=== PATIENT | male | born 1980 | race Caucasian/White ===

== ENCOUNTER 2020-11-27 06:00 | Inpatient (IN) | payer MEDICAID, SELFPAY ==
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
--- NOTE | 2020-11-21 11:07 | EKG12_ITS ---
Test Reason : PRE OP Blood Pressure : / mmHG Vent. Rate : 072 BPM Atrial Rate : 072 BPM P-R Int : 148 ms QRS Dur : 090 ms QT Int : 376 ms P-R-T Axes : 029 020 027 degrees QTc Int : 411 ms Normal sinus rhythm Normal ECG Confirmed by VALERIE ALVARADO, SANTOSH ([id number]), field map editor LUCAS DIEZ ([id number]) on 11/21/2020 1:15:42 PM Referred By: GALILEA Confirmed By:SANTOSH PADILLA MD
[2020-11-21 11:38] LABS: Absolute Lymphocyte Count 1.69 X10^3/uL (0.83-4.51); Absolute Neutrophil Count 3.3 X10^3/uL (2.0-7.7); Basophil# 0.03 X10^3/uL; Basophil% 0.5 % (0-1); Eosinophil# 0.08 X10^3/uL; Eosinophils% 1.4 % (0-5); Hemoglobin 15.4 g/dL (13.0-16.5); Lymphocyte # 1.69 X10^3/ul (0.83-4.51); Lymphocyte % 30.5 % (19-41); Mean Corp Hgb Conc 34.2 g/dL (32-36); Mean Corpuscular Hgb 29.8 pg (27.0-32.0); Mean Corpuscular Volume 87.2 fL (80-94); Mean Platelet Vol. 9.2 fl (6.2-12.0); Monocyte# 0.44 X10^3/uL; Monocyte% 7.9 % (0-10); NRBC Flagged by Analyzer 0 % (0-5); Neutrophil # 3.28 X10^3/uL (2.7-7.7); Neutrophil % 59.3 % (47-70); Platelet Count 240 K/mm3 (150-450); RBC Distribution Width SD 41.6 fl (35.1-43.9); Red Blood Count 5.16 M/mm3 (4.6-6.2); White Blood Count 5.5 K/mm3 (4.4-11.0)
[2020-11-21 11:55] LABS: Anion Gap 8 (5-15); BUN 21 mg/dL (7-18); BUN/Creat Ratio 23.3 RATIO (10-20); Calcium,Total 9.1 mg/dL (8.5-10.1); Chloride 105 mmol/L (98-107); EST Glomerular Filtration Rate 100 mL/min (>60); Est Glom Filt Rate - Afr Amer 121 mL/min (>60); Glucose 98 mg/dL (74-106); Sodium Level 138 mmol/L (136-145)
[2020-11-21 12:01] LABS: Magnesium 2.3 mg/dL (1.6-2.6)
[2020-11-21 12:55] LABS: HIV - WCH Non-Reactive (Nonreactive)
[2020-11-22 04:07] LABS: HEPATITIS B SURFACE AG Negative (Negative); Hepatitis A AB, Total Negative (Negative); Hepatitis A IgM Antibody Negative (Negative); Hepatitis B Core AB IgM Negative (Negative); Hepatitis B Core Ab Total Negative (Negative); Hepatitis C Ab <0.1 s/co ratio (0.0-0.9)
[2020-11-22 16:26] LABS: Hep B Surface Antibodies Non Reactive (.)
[2020-11-27] VITALS (11 sets, daily range): BP systolic 99–148; BP diastolic 55–89; PULSE 74–99; RESP 16–18; TEMP 36.2–37.1; O2SAT 92–99; BMI 38.7; BMI 40.1
[2020-11-27] MEDS: Acetaminophen 500 MG Tablet 1000 MG PO (06:54)
[2020-11-27] MEDS: Lactated Ringers 1,000 ML 100 ML IV ×5 (06:55→17:18)
--- NOTE | 2020-11-27 07:30 | RAD_ITS ---
INDICATION: 360 FUSION L5-S1 WITH LAMINECTOMY, RIGHT EXAMINATION/TECHNIQUE: X-RAY - XR Spine Lumbar 1 View COMPARISON: None. FINDINGS: A single lateral image in OR was obtained centered at the L5-S1 intervertebral disc space showing a metallic localization probe projecting over the anterior aspect of the L5-S1 intervertebral disc space. RAD/Spine 1 View Any Level IMPRESSION: A localization probe is noted projected over the anterior aspect of the L5-S1 intervertebral disc space. Electronically Signed: Lamont Luu DO at 10:13 EDT Tel , Service support ,
--- NOTE | 2020-11-27 07:30 | DISC_PTH ---
PATIENT: GINGER DONOVAN LOC: MS3 U#:[id number] AGE/SX: 39/M ROOM: ID315 RE11/27/[address]: Dr. Ricky Carvalho DO : 1980 BED: 1 DIS: 11/30/2020 SPEC #: [id number] RECD: 11/27/20 13:30 STATUS: SRIDHAR BROOKE #: [id number] JAMES: 11/27/20 07:[address]: Ricky Carvalho DEPT: SURGICAL PATHOLOGY RECD BY: Ariane Adams ENTERED: 11/27/20 13:43 SP TYPE: DISC OTHR DR: No Primary Care Phys Tissues: Intervertebral disc, NOS Procedures: Surgery Specimen Level III HEADER OPERATION: ERAS, 360 lumbar fusion L5-S1 with laminectomy PRE-OP DIAGNOSIS: Degenerative disc disease lumbosacral; herniated nucleus pulposus lumbar TISSUE SUBMITTED: Disc L5-S1 MICROSCOPIC DIAGNOSIS Disc L5-S1: Fragments of fibrocartilaginous tissue with reactive and degenerative changes and bone. CHEPE:joy 11/28/2020 MICROSCOPIC DESCRIPTION Slides are reviewed. GROSS DESCRIPTION Received in fixative is one container labeled with the patient's name and designated disc L5-S1. The specimen consists of multiple irregular fragments of roque, indurated tissue that in aggregate measure 4 x 3 x 1 cm. Phlebotomist Supervisor/Instructor tissue is submitted in two cassettes. / CHEPE:joy 11/27/20 TC:5 CPT: 60582
[2020-11-27] MEDS: Cefazolin 2 GM in 0.9% Normal Saline 100 ML IV (08:15)
[2020-11-27 09:15] LABS: Bedside Glucose 122 mg/dL (70-110)
--- NOTE | 2020-11-27 09:28 | RAD_ITS ---
Previous mobile lateral lumbar spine x-rays obtained on 11/27/2020 at 9:14 AM INDICATION: 360 FUSION L5-S1 WITH LAMINECTOMY EXAMINATION/TECHNIQUE: X-RAY - XR Spine Lumbar 1 View COMPARISON: None. FINDINGS: On this single lateral operative multiple oval our film there has been no fusion of the all 5 S1 intervertebral disc with an ACDF plate in place spanning the L5 and S1 segments anteriorly. The lower lumbar spine is maintained in good position and alignment. RAD/Spine 1 View Any Level IMPRESSION: Status post ORIF with fusion of the L5-S1 intervertebral disc space, with the lumbar spine maintained good position and alignment. Electronically Signed: Lamont Luu DO at 13:11 EDT Tel , Service support ,
--- NOTE | 2020-11-27 10:53 | PCM.OPRPT ---
Problems Associated Problem List Diagnoses (1) DDD (degenerative disc disease), lumbosacral: (2) HNP (herniated nucleus pulposus), lumbar: Report of Operation Date of Procedure: 11/27/20 Pre-Operative Diagnosis: Degenerative disc disease Post-Operative Diagnosis: Same Surgery/Procedure Performed:: 1. Anterior lumbar interbody fusion L5-S1 with 12 mm cage. Plate placed on top with 225 mm screws in L5 and 225 mm screws into the S1. Type of Anesthesia: General/Regional Description of Procedure: Surgeon Dr. Carvalho co-surgeon: Dr. Wellington Guerrier Operation: Anterior lumbar interbody fusion L5-S1. Operation: Patient brought to the operating room. Underwent general anesthesia. And been given the appropriate antibiotics. Appropriate monitoring lines were all placed. Was prepped and draped in a sterile fashion. We did a left lower quadrant incision and dissected down onto the anterior fascia. This was incised and then extended just past the midline to the right and past the rectus on the left out to the obliques. We then got lateral to the obliques into the retroperitoneal plane down onto the iliopsoas. Omni retractor was placed and retractors in position started blunt dissection. We freed up medial to the left iliac vessels onto the L5-S1 disc space. 2 different iliac venous branches were ligated between clips. The middle sacral vessels were also divided between clips. We then freed up further along this disc space. We confirmed with x-ray that we are in the proper L5-S1 space. He underwent a discectomy then and opened this up with dilators. We then got bone marrow aspirate from the left iliac crest. It was then sized with Elisa and the dilators. We then used a large 12 mm cage. This was filled in with also the bone marrow aspirate. This was then placed with good position. The cage was placed with 2 screws 25 mm in L5. 2 screws then into the sacrum also 25 mm. Film was placed over this is retractors were gently released. And this covered over the cage underneath the vessels. There is good hemostasis noted throughout. We then did a completion x-ray that showed good position of the screws and the cage. We then closed the anterior fascia with a running strata fix. Then with 2-0 Vicryl and 3-0 Vicryl's. Monocryl for the skin and Dermabond was placed. He will then be flipped over and the posterior part were all be done and dictated separately. I was present during the entire component of the anterior. Complications None
--- NOTE | 2020-11-27 10:57 | OP.PCM_ITS ---
Report of Operation Date of Procedure: 11/27/20 Description of Surgical Findings:: Preoperative diagnosis: Degenerative disc disease with instability L5-S1 Postoperative diagnoses: The same Procedures: #1 anterior lumbar interbody fusion L5-S1 CPT code 56100 #2 application of anterior spine plate L5-S1 CPT code 15928/59 not integral to interbody cage #3 insertion of interbody cage L5-S1 CPT code 74304 Cosurgeons: Dr. Carvalho and Dr. Guerrier assistant professor nurse education: Sandy VILLALBA Anesthesia: General endotracheal anesthesia administered by [facility] Estimated blood loss: Less than 100 cc Drains: None Complications: None Procedure: Patient was taken to the OR where he was placed in the supine position on the operating table he was then placed under general endotracheal anesthesia. A Guerra catheter was inserted. Neuro monitoring placed their leads and the patient. The abdomen was then prepped and draped in standard fashion. The anterior abdominal retroperitoneal approach is described in Dr. Guerrier's operative summary. Once Dr. Guerrier had the exposure for L5-S1 he confirmed with x-ray. I then remove the anterior annulus of the L5-S1 disc with a 10 blade. At that he had a severely decreased disc space. I then was able to remove some of the nucleus with a small pituitary rongeurs. I also used small angled curettes and ring curettes to accomplish more of the same. To the posterior po rtion of the decrease space I had to use a 6 mm patito bur. Was able to bur the posterior annulus all the way across repeatedly followed by the instillation of cold saline to prevent thermal injury. I also removed all the cartilage off the endplates with curettes. In this portion we were able to obtain enough room for a large 12 mm high 8 degree interbody cage. In the meantime a Jamshidi need le was placed in the patient's left ASIS and obtained 60 cc of bone marrow aspirate. This was then handed off to the endoscopy technician who spun down the aspirate the stem cells from the other cells concentrated them and gave them back to us. We then filled the inside of the cage with spongy DBM that was then soaked in the patient's own concentrated stem cells. I then tamped this into place and countersunk the cage approximately 3 mm. Used cautery to elevate the anterior longitudinal ligament above and below the space to make room for the plate. Small anterior spurs were easily removed with double-action rongeurs. Ended up using a 25 mm lumbosacral plate. Once centered I held it in place while Dr. Guerrier tamped each of the 4 holes 2 into L5 and 2 into S1. After tapping each 1 at a time he entered with the 25 mm self-tapping screws at all 4 points. He then activated the locking mechanisms at both ends of the plate. Observe this on x-ray and was found to be quite satisfactory the position of the plate the screws and the cage. An amniotic membrane was then placed over the cage to prevent adhesion to the vessels surrounding it. The closure is then described in Dr. Guerrier's operative summary. This is the end of operative summary on Jimbo Diego. This is Dr. Carvalho dictating.
--- NOTE | 2020-11-27 12:17 | RAD_ITS ---
STUDY: X-RAY - LUMBAR SPINE REASON FOR EXAM: Male, 39 years old. 360 FUSION L5-S1 with laminectomy TECHNIQUE: 1 view(s) of the lumbar spine were obtained. COMPARISON: Earlier the same day FINDINGS: L5-S1 spinal fixation. L5-S1 intervertebral disc spacer. L5 laminectomy. No unexpected intraoperative findings. Surgical soft tissues with localization device. RAD/Spine 1 View Any Level IMPRESSION: L5-S1 laminectomy with spinal fixation and disc spacer Intraoperative image Please see surgeon''s note Electronically Signed: Kota Calle DO at 12:35 EDT Tel , Service support ,
--- NOTE | 2020-11-27 13:49 | PCM.OPRPT ---
Report of Operation Date of Procedure: 11/27/20 Description of Surgical Findings:: Preoperative diagnosis: degenerative disc disease L5-S1 with instability Postoperative diagnoses: The same Procedures: #1 bilateral lateral fusion L5-S1 CPT code 62149 #2 lumbar laminectomy discectomy L5-S1 CPT code 23321 #3 nonsegmental internal fixation L5-S1 CPT code 46851 Surgeon: Dr. Carvalho First assistants: Gelacio Lemus and Sandy VILLALBA Anesthesia: General endotracheal anesthesia administered by [facility] EBL: 100 cc Drains: Medium Hemovac Complications: None Procedure: Once the anterior surgery was done in the abdomen closed the patient was then positioned in the prone position on the Laz frame. After appropriate positioning with care to protect his bony prominences his genitalia the brachial plexus and ulnar nerves bilaterally the back was prepped and draped in standard fashion. I then made a longitudinal incision site centered over L5-S1 subcutaneous tissues were incised length of skin incision I opened the lumbar fascia using cautery to the right of the spinous processes and elevated the paravertebral muscles off the lamina of of L5 and the lamina of S1. An intraoperative x-ray was taken to assure that we were indeed at the proper level which we were. Brea retractor was then put in place and then elevated the ligamentum flavum off the underside of the lamina of L5 on the right side. I then performed a laminectomy with Kerrison rongeurs and then remove the ligamentum flavum in retrograde fashion with the 45 degree Kerrison rongeurs. In this fashion I was able to retract the S1 nerve root and dura medialward exposing the herniated disc that the disc was had been there for quite a while was calcified but I was able to cut through it and remove the portion that was pressing on the nerve. In addition opening the lateral recess also decompress the nerve. Thorough irrigation was carried out repeatedly. I then exposed the lateral recess on the right side. We then opened the opposite side and did the same thing again elevating peritoneal muscles off the lamina of S1 and the lamina of L5 when out over the facets and expose the transverse process of L5 and the ala of S1. The area was then burred and the biologic bone called Sparc was used to fill the gutters on both sides the internal fixation device was then applied was locked into place over both interspaces and the locking mechanisms were activated. This was observed in the AP and lateral projection was found to be quite satisfactory. A medium Hemovac drain was put in place we then closed the lumbar fascia using [id number] suture with #1 Vicryl followed by closure of subcutaneous tissues with 2-0 Vicryl in interrupted fashion and skin was approximated using skin clips sterile dressings were then applied. The patient was then recovered in the OR moved to his hospital bed and taken to recovery in satisfactory condition. This is the end of operative summary on Jimbo Diego. This is Dr. Carvalho dictating.
[2020-11-27] MEDS: Morphine 4 MG/ML Syringe IV ×3 (17:18→21:32)
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
[2020-11-27] MEDS: diazePAM 5 MG Tablet PO (18:26)
[2020-11-27] MEDS: oxyCODONE 5 MG Tablet PO (18:26)
[2020-11-27] MEDS: Cefazolin 1 GM/50 ML BAG IV (18:37)
[2020-11-27] MEDS: Famotidine 20 MG Tablet PO (21:32)
[2020-11-27] MEDS: Senna/Docusate Sodium 1 Tablet 2 TABLET PO (21:32)
[2020-11-27] MEDS: Zolpidem Tartrate 5 MG Tablet PO (21:32)
[2020-11-28] VITALS (8 sets, daily range): BP systolic 123–137; BP diastolic 73–91; PULSE 72–95; RESP 14–16; TEMP 36.8–37.2; O2SAT 94–100
[2020-11-28] MEDS: Morphine 4 MG/ML Syringe IV ×5 (00:11→20:38)
[2020-11-28] MEDS: Lactated Ringers 1,000 ML 100 ML IV ×3 (00:16→18:43)
[2020-11-28] MEDS: Cefazolin 1 GM/50 ML BAG IV (03:55)
[2020-11-28] MEDS: oxyCODONE 5 MG Tablet PO (05:13)
[2020-11-28] MEDS: 0.9% Saline Lock 10 ML Syringe IV ×2 (07:42→16:35)
[2020-11-28] MEDS: Famotidine 20 MG Tablet PO ×2 (07:42→22:20)
[2020-11-28] MEDS: Senna/Docusate Sodium 1 Tablet 2 TABLET PO ×2 (07:42→22:20)
--- NOTE | 2020-11-28 09:06 | PCM.PN.HOSP ---
Subjective Subjective Still with back pain. Current pain medication has no relieved it. Objective Data Objective Data Vital Signs: Vital Signs Temp Pulse Resp BP Pulse Ox 36.8 C 72 14 126/84 H 98 11/28/20 07:40 11/28/20 07:40 11/28/20 07:40 11/28/20 07:40 11/28/20 08:00 Oxygen Flow Rate (L/min) 6 Oxygen Delivery Method Room Air Weight: 130.436 kg Body Mass Index (BMI) 40.1 Intake & Output: Intake and Output for Last 24 Hours 11/26/20 11/27/20 11/28/20 23:59 23:59 23:59 Intake Total 3613.67 / 3613.67 1111.67 / 1111.67 Output Total 916 / 1716 1420 / 1420 Balance 2697.67 / 1897.67 -308.33 / -308.33 Lab / Micro Data Result Diagrams: 11/21/20 11:19 11/21/20 11:19 Labs: Laboratory Results - last 24 hr 11/27/20 06:29: POC Glucose 122 H Micro: Microbiology 11/26/20 14:43 Interface Orders SARS-CoV-2 Antigen (Rapid) - Final 11/21/20 11:19 Swab (Method) Nasal Screen MRSA/MSSA - Final Radiography Diagnostic Testing: Radiology Impression Spine X-Ray 11/27/20 07:30 IMPRESSION: A localization probe is noted projected over the anterior aspect of the L5-S1 intervertebral disc space. Electronically Signed: Lamont Luu DO at 10:13 EDT Tel , Service support , Spine X-Ray 11/27/20 09:28 IMPRESSION: Status post ORIF with fusion of the L5-S1 intervertebral disc space, with the lumbar spine maintained good position and alignment. Electronically Signed: Lamont Luu DO at 13:11 EDT Tel , Service support , Spine X-Ray 11/27/20 12:17 IMPRESSION: L5-S1 laminectomy with spinal fixation and disc spacer Intraoperative image Please see surgeon''s note Electronically Signed: Kota Calle DO at 12:35 EDT Tel , Service support , Physical Exam Const alert HEENT Head and Scalp: normocephalic Resp normal respiratory effort, no retractions, no use of accessory muscles and clear to auscultation bilaterally Cardio regular rate, regular rhythm, S1 normal heart sound and S2 normal heart sound GI normal to inspection, nondistended, normoactive bowel sounds, soft to palpation, non-tender and non-distended Extremity normal to inspection Neuro Sensorium / Orientation: awake and alert Assessment & Plan Assessment/Plan (1) DDD (degenerative disc disease), lumbosacral: (2) IBS (irritable bowel syndrome): QUALIFIERS: Irritable bowel syndrome type: unspecified Qualified Code(s): K58.9 - Irritable bowel syndrome without diarrhea PLAN: 1. Status post bilateral lateral fusion of L5-S1, lumbar laminectomy and discectomy of L5-S1. Postoperatively, patient is feeling well. Management per spine surgery. PT eval He has been taking oxycodone 5mg w/o relief. Advised using oral then using IV for breakthrough. Will increase oral to 5-10mg and utilize IV for breakthrough. 2. IBS Stable Supportive management at this time 3. VTE prophylaxis SCDs Charges/Coding Visit Charges Inpatient E&M: 61832 Subs Hosp L2
[2020-11-28] MEDS: oxyCODONE 5 MG Tablet 10 MG PO ×4 (10:08→22:51)
--- NOTE | 2020-11-28 12:51 | CASEMGMT ---
RN CM Assessment Introduced role of RN CM to patient. Patient is alert, oriented and able to participate in RN CM Assessment. Care providers, pharmacy, and demographics verified. Admit Dx: 360 Lumbar Infusion w/Laminectomy Re-Admit: No Barriers/Issues: None PCP: None- PCP list provided Specialists: Pain Management in [place]. Ricky Carvalho-Ortho Surgeon Preferred Pharmacy: [facility] Insurance: [facility] CP Rx Benefit: Yes LNOK: Arlyn Caicedo- Mother LW/HPOA: None, AD packet provided. Living Arrangements: Lives alone in a H, 3 steps to enter. ADL?s: Independent with ambulation and ADLs Transportation: Patient drives. Father Chai will transport upon DC. DME: None HHC: None SNF: None Goal: Home and Outpatient PT, PT-recommended FWW but patient would like a cane. Denies any other concerns, issues, or needs with DC. Aware RNCM will remain available should any emerging needs arise. DC PLAN: Home with outpatient PT, FWW and Cane prescription. BRITT Rutledge
--- NOTE | 2020-11-28 13:19 | PCM.PN.ORT ---
Objective Data Objective Data Vital Signs: Vital Signs Temp Pulse Resp BP Pulse Ox 98.8 F 72 14 124/81 H 97 11/28/20 12:00 11/28/20 12:00 11/28/20 12:00 11/28/20 12:00 11/28/20 12:00 Oxygen Flow Rate (L/min) 6 Oxygen Delivery Method Room Air Weight: 287 lb 9 oz Body Mass Index (BMI) 40.1 Intake & Output: Intake and Output for Last 24 Hours 11/26/20 11/27/20 11/28/20 23:59 23:59 23:59 Intake Total 3613.67 / 3613.67 1691.67 / 1691.67 Output Total 916 / 1716 1420 / 1420 Balance 2697.67 / 1897.67 271.67 / 271.67 Lab / Micro Data Result Diagrams: 11/21/20 11:19 11/21/20 11:19 Micro: Microbiology 11/26/20 14:43 Interface Orders SARS-CoV-2 Antigen (Rapid) - Final 11/21/20 11:19 Swab (Method) Nasal Screen MRSA/MSSA - Final Procedure Criteria Elective Risks - COVID COVID Risk Discussion: Postop day #1. Jimbo is seen on rounds today. His right leg pain is gone. He has been up on his walker and walking the hallways. He states that his abdomen hurts a lot more than his back does. There is still no bowel sounds and he is a bit bloated suggesting that he has as expected an ileus. However we will change his diet to clear liquids today even though I thought I ordered it the system is unclear as to what kind of diet anybody seems to get. Nonetheless I will order it now. Overall he is doing very well his dressing is dry we will remove the drain tomorrow and change the dressing. Progress is satisfactory.
--- NOTE | 2020-11-28 13:54 | CASEMGMT ---
Pt asked CM for resources regarding financial resources as pt will not be able to work for a couple of months. SW met w/pt in room, pt's parents are present. SW gave pt information for Social Security to apply for disability, other financial resources in [facility], and information on 211. SW remains available for any additional resources. SUKHI Brothers
[2020-11-28] MEDS: diazePAM 5 MG Tablet PO (22:51)
[2020-11-29 02:07] VITALS: BP 132/73; PULSE 97; RESP 18; TEMP 37.1; O2SAT 96
[2020-11-29] MEDS: Morphine 4 MG/ML Syringe IV ×5 (02:12→20:01)
[2020-11-29] MEDS: oxyCODONE 5 MG Tablet 10 MG PO ×5 (04:34→22:36)
[2020-11-29 07:22] VITALS: O2SAT 92
[2020-11-29 08:00] VITALS: BP 121/80; PULSE 97; RESP 14; TEMP 37; O2SAT 94
[2020-11-29] MEDS: Famotidine 20 MG Tablet PO ×2 (09:48→22:35)
[2020-11-29] MEDS: Senna/Docusate Sodium 1 Tablet 2 TABLET PO ×2 (09:48→22:35)
[2020-11-29] MEDS: 0.9% Saline Lock 10 ML Syringe IV ×3 (11:16→20:02)
[2020-11-29 13:49] VITALS: BP 135/78; PULSE 87; RESP 18; TEMP 37.6; O2SAT 98
--- NOTE | 2020-11-29 13:50 | PCM.PN.HOSP ---
Subjective Subjective pain better controlled. improved sensation in LE. Objective Data Objective Data Vital Signs: Vital Signs Temp Pulse Resp BP Pulse Ox 37.0 C 97 14 121/80 H 94 11/29/20 08:00 11/29/20 08:00 11/29/20 08:00 11/29/20 08:00 11/29/20 08:00 Oxygen Flow Rate (L/min) 6 Oxygen Delivery Method Room Air Weight: 130.436 kg Body Mass Index (BMI) 40.1 Intake & Output: Intake and Output for Last 24 Hours 11/27/20 11/28/20 11/29/20 23:59 23:59 23:59 Intake Total 3613.67 / 3613.67 2541.67 / 2541.67 1752.33 / 1752.33 Output Total 916 / 1716 2920 / 2920 1999 Balance 2697.67 / 1897.67 -378.33 / -378.33 -247.67 / -247.67 Medical Nutrition Assessment Dietitian: Nutrition Therapy Diagnosis Start: 11/28/20 15:03 Freq: Status: Active Protocol: Document 11/28/20 15:03 RMA (Rec: 11/28/20 15:03 RMA [id number]) Nutrition Malnutrition Evidence of Malnutrition Exists No Intake Problem Increased Nutrient Needs (specify) Etiology (protein) r/t surgical wounds Signs/Symptoms as evidenced by back and abdomen surgical incisions and need for hemovac. Currently on clear liquid diet. Status Active Problem Recommendation Dietitian Recommendations/Changes Recommend regular/general diet when advanced to PO diet. Add ensure clear 240mL at meals if needed. Lab / Micro Data Result Diagrams: 11/21/20 11:19 11/21/20 11:19 Micro: Microbiology 11/26/20 14:43 Interface Orders SARS-CoV-2 Antigen (Rapid) - Final 11/21/20 11:19 Swab (Method) Nasal Screen MRSA/MSSA - Final Physical Exam Const alert Cardio S2 normal heart sound Extremity normal to inspection and no clubbing, cyanosis or edema Skin no rashes or lesions noted Neuro no sensory deficits noted Assessment & Plan Assessment/Plan (1) DDD (degenerative disc disease), lumbosacral: (2) IBS (irritable bowel syndrome): QUALIFIERS: Irritable bowel syndrome type: unspecified Qualified Code(s): K58.9 - Irritable bowel syndrome without diarrhea PLAN: 1. Status post bilateral lateral fusion of L5-S1, lumbar laminectomy and discectomy of L5-S1. Pain better controlled Postoperatively, patient is feeling well. Management per spine surgery. PT eval He has been taking oxycodone 5mg w/o relief. Advised using oral then using IV for breakthrough. Will increase oral to 5-10mg and utilize IV for breakthrough. 2. IBS Stable Supportive management at this time 3. VTE prophylaxis SCDs Charges/Coding Visit Charges Inpatient E&M: 75303 Subs Hosp L1
[2020-11-29] MEDS: Acetaminophen 500 MG Tablet 1000 MG PO ×2 (13:52→22:35)
--- NOTE | 2020-11-29 15:04 | NURSING ---
DR CALERO IN AND CHANGED DRSG TO BACK AND REMOVED DRAIN. PT TOLERATED WELL
--- NOTE | 2020-11-29 15:06 | PCM.PN.ORT ---
Objective Data Objective Data Vital Signs: Vital Signs Temp Pulse Resp BP Pulse Ox 99.6 F H 87 18 135/78 H 98 11/29/20 13:49 11/29/20 13:49 11/29/20 13:49 11/29/20 13:49 11/29/20 13:49 Oxygen Flow Rate (L/min) 6 Oxygen Delivery Method Room Air Weight: 287 lb 8.994 oz Body Mass Index (BMI) 40.1 Intake & Output: Intake and Output for Last 24 Hours 11/27/20 11/28/20 11/29/20 23:59 23:59 23:59 Intake Total 3613.67 / 3613.67 2541.67 / 2541.67 1752.33 / 1752.33 Output Total 916 / 1716 2920 / 2920 1999 Balance 2697.67 / 1897.67 -378.33 / -378.33 -247.67 / -247.67 Medical Nutrition Assessment Dietitian: Nutrition Therapy Diagnosis Start: 11/28/20 15:03 Freq: Status: Active Protocol: Document 11/28/20 15:03 RMA (Rec: 11/28/20 15:03 RMA [id number]) Nutrition Malnutrition Evidence of Malnutrition Exists No Intake Problem Increased Nutrient Needs (specify) Etiology (protein) r/t surgical wounds Signs/Symptoms as evidenced by back and abdomen surgical incisions and need for hemovac. Currently on clear liquid diet. Status Active Problem Recommendation Dietitian Recommendations/Changes Recommend regular/general diet when advanced to PO diet. Add ensure clear 240mL at meals if needed. Lab / Micro Data Result Diagrams: 11/21/20 11:19 11/21/20 11:19 Micro: Microbiology 11/26/20 14:43 Interface Orders SARS-CoV-2 Antigen (Rapid) - Final 11/21/20 11:19 Swab (Method) Nasal Screen MRSA/MSSA - Final Procedure Criteria Elective Risks - COVID COVID Risk Discussion: Postop day number 2. the patient is doing fairly well he now has good bowel sounds and he is has some flatulence that I witnessed myself. Went ahead and change his back dressing the drain was removed the incision is dry and healing well. Neurologically is intact in both lower extremities. Progress is satisfactory on the second postop day. If he continues to have good bowel sounds tomorrow we might let him go to the house.
--- NOTE | 2020-11-29 15:22 | CASEMGMT ---
FILIPPO JOSUE NOTE: Reviewed PT/OT notes. FWW is recommended. FILIPPO JOSUE to room to talk w/pt. Pt states he would be interested in getting both a FWW and a cane. He was made aware cane is not covered by insurance, but they will cover for portion of cost for FWW. Pt was provided with list of providers consistent with the patient's preferred geographic region, medical needs, and insurance network. The pt's denies having a preference of DME company. Made aware [facility] of [facility] and he states [employer]. Pt also made aware, per Dr Carvalho, he does not wish for pt to get OP therapy. He states that Dr Carvalho had just informed of this and told him he wants him to just walk a lot. Pt denies having any discharge concerns/further needs at this time. Script placed on chart for FWW, awaiting Dr Carvalho's signature. Zeferino GARCIA RN CM
[2020-11-29] MEDS: traMADol 50 MG Tablet 100 MG PO (17:14)
[2020-11-29 18:26] VITALS: BP 117/71; PULSE 86; RESP 16; TEMP 37.2; O2SAT 98
[2020-11-29 22:22] VITALS: BP 126/73; PULSE 81; RESP 16; TEMP 37.5; O2SAT 95
[2020-11-30] MEDS: Morphine 4 MG/ML Syringe IV (01:14)
[2020-11-30] MEDS: 0.9% Saline Lock 10 ML Syringe IV (01:15)
[2020-11-30 02:58] VITALS: BP 119/66; PULSE 91; RESP 16; TEMP 37.3; O2SAT 99
[2020-11-30] MEDS: oxyCODONE 5 MG Tablet 10 MG PO ×3 (03:03→12:26)
[2020-11-30] MEDS: Acetaminophen 500 MG Tablet 1000 MG PO ×2 (06:26→15:13)
[2020-11-30] MEDS: Famotidine 20 MG Tablet PO (08:04)
[2020-11-30] MEDS: Senna/Docusate Sodium 1 Tablet 2 TABLET PO (08:04)
[2020-11-30 08:14] VITALS: BP 136/71; PULSE 86; RESP 18; TEMP 36.6; O2SAT 97
[2020-11-30] MEDS: traMADol 50 MG Tablet 100 MG PO (11:26)
[2020-11-30 13:50] VITALS: O2SAT 97
--- NOTE | 2020-11-30 14:28 | CASEMGMT ---
Pt had told RN that the number SW gave him for disability didn't work. 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 SW explained will look at other options and see what other information SW can find. SW did a search online, from this SW's search, it seems [place] does not have short term disability unless a person paid into it, or it's offered by an employer. SW explained this to pt. Pt's employer does not have short term disability. SW gave pt the number for JFS in [place] to see if he can apply for muse assistance, and gave him the website and phone number for unemployment as well. No further needs at this time, pt home, likely today. SUKHI Brothers
[2020-11-30 15:32] VITALS: BP 114/69; PULSE 65; RESP 18; TEMP 36.6; O2SAT 96
--- NOTE | 2020-11-30 16:16 | PCM.DC ---
Discharge Instructions Diet Discharge Diet: Light diet - advance as tolerated Activity Discharge Activity: May Not Drive May shower in (days): 3 May resume sexual activity in: 4-6 weeks Weight Bearing Status: Full weight bearing Dressing / Incision Call your doctor if your incision/area has: Increased Pain/ Swelling Call your doctor if you observe: Fever of 101 or Higher and Uncontrolled pain Remove Dressing in: 2 days Cleanse incision/area with: Soap & Water Follow Up Care Please Follow Up With: Ricky Carvalho DO When: 16 Test Results: Test results from this visit will be discussed in further detail at your follow-up appointment, if applicable. Discharge Plan Admission Admit Date/Time: 11/27/20 06:00 Primary Reason for Your Visit: surgery Attending Provider: Ricky Carvalho Primary Care Provider: Care Physician,No Primary Consulting Providers: Kota Combs Discharge Orders/Prescriptions Prescriptions: No Action methocarbamol 500 mg tablet 500 tablet PO PRN PRN (Reason: MUSCLE SPASMS) RF: 0 hydrocodone-acetaminophen 10-325 mg tablet 1 tab PO Q6H PRN (Reason: pain) 10 Days Qty: 40 RF: 0 Referrals / Follow Up: Care Physician,No Primary [Primary Care Provider] - Disposition Disposition (needs filled in before D/C Order can be placed): Home, Self Care
--- NOTE | 2020-11-30 16:21 | DS.PCM_ITS ---
Providers Date of Admission: 11/27/20 Primary Care Physician: No Primary Care Phys Consultations 11/27/20 09:04 Consult: Hospitalist Routine Consulting Provider: Kota Combs Reason for Consult: Medical Management EMERGENT Consult: No MD Notified: Yes Date Notified: 11/27/20 Time Notified: 17:13 Method of Notification: Text Reason For Visit: 360 LUMBAR FUSION L5-S1 WITH LAMINECTOMY Diagnosis Discharge Diagnosis (1) DDD (degenerative disc disease), lumbosacral: Status: Acute Code(s): M51.37 - Other intervertebral disc degeneration, lumbosacral region (2) IBS (irritable bowel syndrome): Status: Acute Code(s): K58.9 - Irritable bowel syndrome without diarrhea Qualifiers: Irritable bowel syndrome type: unspecified Qualified Code(s): K58.9 - Irritable bowel syndrome without diarrhea Medications at Discharge Home Medications methocarbamol 500 mg tablet 500 tablet PO PRN PRN 08/27/20 hydrocodone 10 mg-acetaminophen 325 mg tablet 1 tab PO Q6H PRN 10 Days #40 tab 11/30/20 Medical Records Data Medical Nutrition Assessment Dietitian: Nutrition Therapy Diagnosis Start: 11/28/20 15: 03 Freq: Status: Active Protocol: Document 11/28/20 15:03 RMA (Rec: 11/28/20 15:03 RMA [id number]) Nutrition Malnutrition Evidence of Malnutrition Exists No Intake Problem Increased Nutrient Needs (specify) Etiology (protein) r/t surgical wounds Signs/Symptoms as evidenced by back and abdomen surgical incisions and need for hemovac. Currently on clear liquid diet. Status Active Problem Recommendation Dietitian Recommendations/Changes Recommend regular/general diet when advanced to PO diet. Add ensure clear 240mL at meals if needed. Weight / BMI Weight Weight: 287 lb 8.994 oz Body Mass Index (BMI) 40.1 ABG / Lab / Microbiology Data Result Diagrams: 11/21/20 11:19 11/21/20 11:19 Microbiology: Microbiology 11/26/20 14:43 Interface Orders SARS-CoV-2 Antigen (Rapid) - Final 11/21/20 11:19 Swab (Method) Nasal Screen MRSA/MSSA - Final D/C Instructions Discharge Diet: Light diet - advance as tolerated May shower in (days): 3 May resume sexual activity in: 4-6 weeks Weight Bearing Status: Full weight bearing Call your doctor if your incision/area has: Increased Pain/ Swelling Call your doctor if you observe: Fever of 101 or Higher and Uncontrolled pain Cleanse incision/area with: Soap & Water Please Follow Up With: Ricky Carvalho DO When: 16th Meaningful Use Info Meaningful Use Diagnoses (Choose all that apply): None applicable Discharge Plan Admission Admit Date/Time: 11/27/20 06:00 Primary Reason for Your Visit: surgery Attending Provider: Ricky Carvalho Primary Care Provider: Care Physician,No Primary Consulting Providers: Kota Combs Discharge Orders/Prescriptions Prescriptions: No Action methocarbamol 500 mg tablet 500 tablet PO PRN PRN (Reason: MUSCLE SPASMS) RF: 0 hydrocodone-acetaminophen 10-325 mg tablet 1 tab PO Q6H PRN (Reason: pain) 10 Days Qty: 40 RF: 0 Referrals / Follow Up: Care Physician,No Primary [Primary Care Provider] - Disposition Disposition (needs filled in before D/C Order can be placed): Home, Self Care
== END 2020-11-30 17:10 | disposition home or self-care (01) | DRG 304 ==
LOC: ACINP 06:02 → MS3 11-28 12:28
PROVIDERS: Anesthesiology; Admitting Provider Orthopaedic Surgery; Referring Provider Orthopaedic Surgery; Visit Provider Orthopaedic Surgery
PROC: 0SG30A0 Fusion of Lumbosacral Joint with Interbody Fusion Device, Anterior Approach, Anterior Column, Open Approach (ICD-10-PCS; principal; 2020-11-27 07:00)
DX: M51.37 Other intervertebral disc degeneration, lumbosacral region (principal); M51.26 Other intervertebral disc displacement, lumbar region; K56.7 Ileus, unspecified; F17.210 Nicotine dependence, cigarettes, uncomplicated; K58.9 Irritable bowel syndrome, unspecified
CPT/HCPCS: 36415; 72020; 80048; 82962; 83735; 85025; 86703; 86704; 86705; 86706; 86708; 86709; 86803; 87077; 87081; 87340; 87426; 88304; 93005; 97116; 97162; 97530; 99251; 99406; C1713; C9803; J7120; A4216; G0463; J2405

== ENCOUNTER → 2021-01-23 17:36 | Outpatient (CLI) | payer MEDICAID, SELFPAY ==
--- NOTE | 2021-01-23 17:37 | MRI_ITS ---
STUDY: MRI CERVICAL SPINE WITHOUT CONTRAST REASON FOR EXAM: Male, 40 years old. Pain neck,rt shoulder TECHNIQUE: Standardized fat and water weighted pulse sequences were obtained in the sagittal and axial planes. COMPARISON: 01/02/2021 radiographs FINDINGS: Normal foramen magnum and brainstem-cervical cord junction. Normal craniovertebral junction. Normal anterior atlantoaxial articulation. Normal odontoid process. Normal cervical lordosis. Normal vertebral bodies and posterior osseous elements. C2-3: Normal endplates. Disc bulge. Normal central canal and intervertebral neural foramina. C3-4: Normal endplates. Disc bulge with annular fissure indents the thecal sac. Right uncovertebral hypertrophy with moderate right neural foraminal stenosis. C4-5: Normal endplates. Normal disc height, signal and morphology. Normal central canal and intervertebral neural foramina. C5-6: Normal endplates. Disc bulge indents the ventral cord. Right vertebral hypertrophy with moderate right neural foraminal stenosis.. C6-7: MODIC type II endplate change. Disc height loss and bulge with superior migration. Mild spinal canal stenosis. Bilateral uncovertebral hypertrophy with severe right and moderate left neural foraminal stenosis. C7-T1: Normal endplates. Mild disc bulge. Normal central canal and intervertebral neural foramina. Normal cervical cord. Normal visualized soft tissue structures. MRI/Spine Cervical (Routine) IMPRESSION: Multilevel predominantly right neural foraminal stenosis, severe on the right at C6-7. Other degenerative change detailed above. Electronically Signed: Rustam Sims MD at 23:08 EDT Tel , Service support ,
== END ==
PROVIDERS: Referring Provider Orthopaedic Surgery; Visit Provider Orthopaedic Surgery
DX: M50.223 Other cervical disc displacement at C6-C7 level (principal)
CPT/HCPCS: 72141

== ENCOUNTER → 2021-02-27 08:51 | Outpatient (CLI) | payer MEDICAID, SELFPAY ==
--- NOTE | 2021-02-27 11:29 | NEURO ---
NCS and/or EMG Patient Report Ordering Doctor: Ricky Carvalho DATE OF SERVICE: 02/27/21 Jimbo presents for electrodiagnostic testing of the lower limbs. He reports sharp pains in both feet with intermittent tingling. This primarily develops after standing for 1 to 2 hours. Electrodiagnostic findings: Peroneal motor nerve demonstrates normal distal latency, amplitude and conduction velocity bilaterally. Normal tibial motor response bilaterally. Normal peroneal and tibial F waves. prolonged H reflex bilaterally. Sensory responses are normal in the sural and superficial peroneal nerves. Absent medial plantar response bilaterally. Needle EMG testing demonstrates no evidence of denervation with normal motor unit action potentials. Electrodiagnostic impression: This is an abnormal study in the lower limbs 1. Findings may be suggestive of early development of sensory polyneuropathy as evidenced by absent plantar responses and prolonged H reflexes. 2. No electrodiagnostic evidence is noted for lumbosacral radiculopathy.
== END ==
PROVIDERS: Referring Provider Orthopaedic Surgery; Visit Provider Orthopaedic Surgery
DX: M51.26 Other intervertebral disc displacement, lumbar region (principal); M51.37 Other intervertebral disc degeneration, lumbosacral region
CPT/HCPCS: 95886; 95912

== ENCOUNTER 2024-01-20 05:50 | Day surgery (SDC) | payer MEDICAID, SELFPAY ==
[2024-01-20] VITALS (9 sets, daily range): BP systolic 125–156; BP diastolic 77–104; PULSE 61–78; RESP 16–18; TEMP 36.4–36.6; O2SAT 93–98
[2024-01-20] MEDS: Lactated Ringers 1,000 ML 15 ML IV (06:50)
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
[2024-01-20] MEDS: Cefazolin 2 GM in 0.9% Normal Saline (100mL Bag) 100 ML IV (07:24)
[2024-01-20] MEDS: Bupivacaine Mpf 0.5% 30 ML VIAL (07:50)
--- NOTE | 2024-01-20 07:59 | PCM.POST.ANE ---
Anesthesia: Postop Eval I Current Vital Signs Temperature: 97.8 F Pulse Rate: 78 Blood Pressure: 150/99 Respiratory Rate: 18 Pulse Ox: 98 Oxygen Delivery Method: Room Air Assessment Airway patent: Yes Spontaneous unlabored respirations: Yes Mental status: Awake and Calm nausea: No Vomiting: No Anesthesia Complication: No Fluid Hydration Crystalloid volume administer (ml): 400 Total IV fluid infused: 400 Progress Note Anesthesia document: Postop Eval 1 completed: Yes
--- NOTE | 2024-01-20 08:11 | PCM.OPRPT ---
Report of Operation Date of Procedure: 01/20/24 Pre-Operative Diagnosis: Umbilical hernia Post-Operative Diagnosis: Umbilical hernia less than 3 cm Surgery/Procedure Performed:: Umbilical hernia repair with mesh Type of Anesthesia: General/Regional Specimen's removed: None Estimated Blood Loss (mL): 10 Description of Procedure: Patient was brought to the operating room and general anesthesia was induced. The abdomen was prepped and draped in usual sterile fashion. A curvilinear incision was marked superior to the umbilicus and then injected with local anesthetic. Incision was made with a scalpel and the subcutaneous tissue was inspected and the hernia was identified. The hernia sac was dissected free circumferentially using electrocautery dissection and then it was reduced. The fascia was elevated and the preperitoneal tissue was spared from the hernia circumferentially to allow for mesh. Next the small Ventralex ST mesh was placed in the preperitoneal space and sutured to the anterior fascia using 0 PDS suture. The area was irrigated and suctioned dry and then the fascia was reapproximated with several interrupted 0 PDS sutures. The area was irrigated and suctioned dry. The skin was closed with interrupted 3-0 Vicryl sutures. Steri-Strips and a bandage were applied. Patient tolerated the procedure well and was brought to PACU in stable condition. Grafts/Implants Used: Small Ventralight ST mesh Admit VTE Documentation VTE Mechan Device Prophylaxis: SCD's
--- NOTE | 2024-01-20 08:13 | DCINST_ITS ---
Discharge Instructions Procedure Hernia Diet Discharge Diet: Light diet - advance as tolerated Activity Discharge Activity: May Not Drive (for 2-3 days or while taking narcotic pain meds.) and May Shower (with the bandage in place 1-2 days after surgery.) Lifting Restrictions: 20 pounds for 4 weeks. Additional Activity Instructions:: Climbing stairs is fine, walking is encouraged. Sitting in bed may be uncomfortable. Sitting up using your lateral muscles (sitting up sideways) is usually more comfortable. Do not drive, work heavy equipment of sign legal documents for 24 hours. Pain medications may cause nausea, you should typically eat light foods as you take your pain medications. Pain medications may also cause constipation. If you have difficulty with this, discuss with your doctor. Alternate ibuprofen and Tylenol for pain control, oxycodone for breakthrough pain. Dressing / Incision Call your doctor if your incision/area has: Continuous Slow Oozing, Sudden Increased Bleeding, Increased Pain/ Swelling, Increased Redness and Foul Smelling Discharge Call your doctor if you observe: Fever of 101 or Higher Suture Line Care: Avoid Pulling/Pushing and Avoid Pinching/Bending Remove Dressing in: 2 days (Remove clear bandages in 2 days, remove Steri-Strips in 7 to 10 days.) Cleanse incision/area with: Soap & Water Follow Up Care Please Follow Up With: Kaushik Mcgee MD When: Please call to schedule 2 week follow up appointment. [phone] Test Results: Test results from this visit will be discussed in further detail at your follow- up appointment, if applicable. Discharge Plan Admission Attending Provider: Kaushik Mcgee Primary Care Provider: Care Physician,Jennifer Primary Instructions Print Language: Citizen Of [place] Discharge Orders/Prescriptions Prescriptions: New oxycodone 5 mg Tablet 5 - 10 mg PO Q4H PRN PRN (Reason: Pain Score 4-10) 5 Days Qty: 14 0RF Referrals / Follow Up: Care Physician,Jennifer Primary [Primary Care Provider] - Disposition Disposition (needs filled in before D/C Order can be placed): Home, Self Care
[2024-01-20] MEDS: Acetaminophen 325 MG Tablet 650 MG PO (09:41)
[2024-01-20] MEDS: oxyCODONE 5 MG Tablet PO (09:42)
--- NOTE | 2024-01-20 16:16 | POSTOPAN2_ITS ---
Anesthesia Postop Eval I Sum Postop Eval Completion status Anesthesia document: Postop Eval 1 completed: Yes Anesthesia Postop Eval I Summary Anesthesia Postop Eval I Summary: Anesthesia Postop Eval I: Assessment Summary Airway patent Yes 01/20/24 08:01 COMMUNICATIONS CONSULTANT.NICOLÁS Spontaneous unlabored Yes 01/20/24 08:01 JOYCE respirations Mental status Awake,Calm 01/20/24 08:01 COMMUNICATIONS CONSULTANT.NICOLÁS nausea No 01/20/24 08:01 COMMUNICATIONS CONSULTANT.NICOLÁS Vomiting No 01/20/24 08:01 JOYCE Anesthesia Postop Eval I: Fluid Summary Crystalloid volume administer 400 01/20/24 08:01 IKER.NICOLÁS (ml) Colloids volume administered ( ml) Blood Product volume administered (ml) Total IV fluid infused 400 01/20/24 08:01 JOYCE Anesthesia Postop Eval I: Summary Notes Anesthesia Complication No 01/20/24 08:01 JOYCE Anesthesia Complication Comment: Post-operative progress note Anesthesia: Postop Eval II Evaluation Mental status: Awake and Calm Pain Level: 1 nausea: No Vomiting: No Complications Anesthesia Complication: No
== END 2024-01-20 09:59 | disposition home or self-care (01) ==
LOC: SDC 06:52 → AC 06:53
PROVIDERS: Referring Provider Surgery; Visit Provider Surgery
PROC: (CPT 49591; principal; 2024-01-20 07:15)
DX: K42.9 Umbilical hernia without obstruction or gangrene (principal); Z87.891 Personal history of nicotine dependence; Z98.1 Arthrodesis status; K21.9 Gastro-esophageal reflux disease without esophagitis; F12.90 Cannabis use, unspecified, uncomplicated
CPT/HCPCS: 49591; J7120; C1781; J2405